=== PATIENT | male | born 1955 | race Caucasian/White ===

== ENCOUNTER 2022-04-07 07:48 | Inpatient (IN) | payer OTHER, MEDICARE ==
[2022-04-01 13:09] VITALS: BMI 30.2
[2022-04-07] MEDS ORDERED: CEFAZOLIN 2 GM in DEXTROSE 5%-WATER - 50 ML IVPB ONE (09:00)
[2022-04-07] MEDS ORDERED: TRANEXAMIC ACID 1000 MG/10 ML VIAL IVPUSH ONE (09:00)
[2022-04-07] MEDS ORDERED: TRANEXAMIC ACID 1000 MG/10 ML VIAL ONE ×2 (10:14→10:43)
[2022-04-07] MEDS ORDERED: MIDAZOLAM HCL 2 MG/2 ML SINGLE DOSE VIAL ONE ×2 (10:16→11:37)
[2022-04-07] MEDS ORDERED: BUPIVACAINE HCL/PF 0.5% (5MG/ML) 10 ML VIAL ONE (10:17)
[2022-04-07] MEDS ORDERED: BUPIVACAINE LIPOSOME/PF (EXPAREL) 266 MG/20 ML VIAL ONE (10:17)
[2022-04-07] MEDS ORDERED: SODIUM CHLORIDE 0.9% P/F 10 ML VIAL IJ ONE (10:17)
[2022-04-07] MEDS ORDERED: DEXAMETHASONE SOD PHOSPHATE 4 MG/1 ML VIAL ONE (10:43)
[2022-04-07] MEDS ORDERED: ceFAZolin SODIUM 1 GM VIAL ONE (10:43)
[2022-04-07] MEDS ORDERED: KETOROLAC TROMETHAMINE 30 MG/1 ML VIAL ONE (10:43)
[2022-04-07] MEDS ORDERED: ONDANSETRON 4 MG/2 ML VIAL ONE (10:43)
[2022-04-07] MEDS ORDERED: PROPOFOL 60 ML ONE (10:46)
[2022-04-07] MEDS ORDERED: SUCCINYLCHOLINE CHLORIDE 200 MG/10 ML SYRINGE ONE (10:46)
[2022-04-07] MEDS ORDERED: ONDANSETRON 4 MG/2 ML VIAL IVPUSH PRN ×2 (13:02→13:03)
[2022-04-07] MEDS ORDERED: MAG HYDROX/AL HYDROX/SIMETH 30 ML UNIT-DOSE CUP PO PRN (13:02)
[2022-04-07] MEDS ORDERED: MAGNESIUM HYDROX 2400MG/30ML ORAL SUSPENSION 30 ML CUP PO PRN (13:02)
[2022-04-07] MEDS ORDERED: ACETAMINOPHEN 1000 MG/100 ML BAG IVPB ONE (13:03)
[2022-04-07] MEDS ORDERED: oxyCODONE HCL 5 MG TABLET PO PRN (13:03)
[2022-04-07] MEDS ORDERED: ACETAMINOPHEN INJECTION 100 ML IVPB ONE (13:12)
[2022-04-07] MEDS ORDERED: LACTATED RINGERS SOLUTION 1,000 ML IV SCH ×2 (13:15)
[2022-04-07] MEDS: GABAPENTIN 300 MG CAPSULE PO SCH ×2 (18:16→21:22)
[2022-04-07] MEDS: CEFAZOLIN 1 GM in DEXTROSE 5%-WATER - 50 ML IVPB SCH (18:18)
[2022-04-07] MEDS: ACETAMINOPHEN 500 MG TABLET (FP) PO SCH (20:00)
[2022-04-07 20:49] VITALS: RESP 18
[2022-04-07] MEDS ORDERED: ACETAMINOPHEN 500 MG TABLET (FP) PO SCH (21:00)
[2022-04-07] MEDS: ASPIRIN 81 MG CHEWABLE TABLETS PO SCH (21:22)
[2022-04-07] MEDS ORDERED: oxyCODONE HCL 10 MG SUSTAINED ACTING TABLET PO SCH (22:00)
[2022-04-07] MEDS: oxyCODONE HCL 5 MG TABLET PO PRN (22:30)
[2022-04-07] MEDS: SENNOSIDES/DOCUSATE COMBO (SENNA PLUS) TABLET (UD) PO SCH (23:40)
[2022-04-08] MEDS: oxyCODONE HCL 5 MG TABLET PO PRN ×4 (03:00→12:14)
[2022-04-08] MEDS: CEFAZOLIN 1 GM in DEXTROSE 5%-WATER - 50 ML IVPB SCH (03:20)
[2022-04-08] MEDS: ACETAMINOPHEN 500 MG TABLET (FP) PO SCH ×2 (03:22→12:15)
[2022-04-08] MEDS: GABAPENTIN 300 MG CAPSULE PO SCH ×2 (05:52→14:39)
[2022-04-08 08:48] LABS: CALCIUM 9.2 mg/dl (8.5-10); CREATININE 1.3 mg/dl (0.55-1.3)
[2022-04-08 08:50] LABS: HEMATOCRIT 32.4 % (35.4-49); HEMOGLOBIN 10.9 G/dL (11.7-16.9); MCH 29.3 pg (25.7-33.7); MCHC 33.6 g/dl (32.0-35.9); MEAN CELL VOLUME 87.3 fl (80-96); MEAN PLT VOLUME 7.7 fl (7.5-11.1); PLATELET COUNT 235.6 10^3/uL (134-434); RBC 3.71 10^6/uL (4.00-5.60); WHITE BLOOD COUNT 10.2 10^3/uL (4.0-10.8)
[2022-04-08] MEDS: SENNOSIDES/DOCUSATE COMBO (SENNA PLUS) TABLET (UD) PO SCH (09:23)
[2022-04-08] MEDS: ASPIRIN 81 MG CHEWABLE TABLETS PO SCH (09:31)
[2022-04-08] MEDS ORDERED: PATIENT'S OWN MEDICATION (NON-FORMULARY) (Omeprazole 20 MG Capsule.Dr) PO SCH (10:00)
[2022-04-08] MEDS ORDERED: PANTOPRAZOLE 40 MG TABLET PO SCH (10:00)
[2022-04-08] MEDS ORDERED: CELECOXIB 200 MG CAPSULE PO SCH (10:00)
[2022-04-08] MEDS ORDERED: HYDROCHLOROTHIAZIDE 25 MG TABLET (FP) PO SCH (10:00)
[2022-04-08] MEDS ORDERED: LISINOPRIL 20 MG TABLET PO SCH (10:00)
[2022-04-08] MEDS ORDERED: DEXAMETHASONE SOD PHOSPHATE 4 MG/1 ML VIAL IVPUSH ONE (10:00)
[2022-04-08 13:50] VITALS: BP 127/67; PULSE 74; TEMP 99.4
== END 2022-04-08 15:19 | disposition home or self-care (01) | DRG 470 ==
LOC: FM/S 07:48
PROVIDERS: ADMIT Orthopaedic Surgery; ATTEND Orthopaedic Surgery
PROC: 0SRC0J9 Replacement of Right Knee Joint with Synthetic Substitute, Cemented, Open Approach (ICD-10-PCS; principal; 2022-04-07 10:58)
DX: M17.11 Unilateral primary osteoarthritis, right knee (principal); I10 Essential (primary) hypertension
CPT/HCPCS: 36415; 73560-TC-RT-FY; 80048; 85027; 94760; 97010-GP; 97116-GP; 97161-GP; C1776; C1889; C9803-CS; U0003; U0005